=== PATIENT | male | born 1985 | race Caucasian/White ===

== ENCOUNTER 2017-06-25 16:04 | Emergency (ER) | payer SELFPAY ==
[~2017-06-25] VITALS: Ht 177.8 cm; Wt 106.6 kg
[2017-06-25 16:06] VITALS: BP_SYST 135
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
--- NOTE | 2017-06-25 16:40 | NUR ---
Dr Lopez at bedside to evaluate patient.
--- NOTE | 2017-06-25 17:55 | NUR ---
Patient given written and verbal discharge instructions and verbalizes understanding. ER MD discussed with patient the results and treatment provided. Patient in stable condition. ID arm band removed. Rx of Motrin given. Patient educated on pain management and to follow up with PMD. Pain Scale 2. Opportunity for questions provided and answered.
[2017-06-25 17:57] VITALS: BP_SYST 133
== END 2017-06-25 17:57 | disposition home or self-care (01) ==
LOC: SED 16:04 → EDBD 16:04 → SED 17:57
DX: S20.20XA Contusion of thorax, unspecified, initial encounter (principal); R03.0 Elevated blood-pressure reading, without diagnosis of hypertension; F17.200 Nicotine dependence, unspecified, uncomplicated; V89.2XXA Person injured in unspecified motor-vehicle accident, traffic, initial encounter; Y93.89 Activity, other specified; Y92.410 Unspecified street and highway as the place of occurrence of the external cause; Y99.8 Other external cause status
CPT/HCPCS: 71010; 71100; 99284